=== PATIENT | female | born 1960 | race Hispanic/Latino ===

== ENCOUNTER → 2017-07-01 | Outpatient (CLI) | payer OTHER ==
[~2017-07-01] MED LIST: ZIAC 5-6.25 MG1 EACH PO
--- NOTE | 2017-07-01 15:49 | Diagnostic Imaging Report ---
PROCEDURE: Frontal and lateral views of the chest. COMPARISON: None. INDICATIONS: SHORTNESS OF BREATH FINDINGS: Lines/tubes: None. Lungs: The lungs are well inflated and grossly clear. There is no evidence of pneumonia or pulmonary edema. Pleura: There is no pleural effusion or pneumothorax. Heart and mediastinum: Cardiac silhouette is unremarkable. Pulmonary vasculature is normal. Bones: No acute bony abnormality. Rightward curvature of the lower thoracic spine. No lytic lesion. IMPRESSION: 1. No acute cardiopulmonary abnormalities. Tree Taylor M.D. Dictated by: Tree Taylor M.D. on 07/01/2017 at 15:51 Electronically approved by: Tree Taylor M.D. on 07/01/2017 at 15:51
== END ==
LOC: RAD 15:15
DX: R06.02 Shortness of breath (principal)
CPT/HCPCS: 71046

== ENCOUNTER → 2017-07-10 | Outpatient (CLI) | payer OTHER ==
[~2017-07-10] MED LIST changes: +IOPAMIDOL 370 MG/ML 200 ML INFUS..BTL INJ ONE; +SODIUM CHLORIDE 0.9% 50ML 50 ML ONE
[2017-07-10 09:58] LABS: BLOOD UREA NITROGEN 13 mg/dL (7-26); BUN/CREATININE RATIO 17 (6-25); CREATININE, SERUM 0.75 mg/dL (0.57-1.11); EST GLOMERULAR FILTRATION RATE > 60 ML/MIN (60-)
--- NOTE | 2017-07-10 11:13 | Diagnostic Imaging Report ---
PROCEDURE: CT scan of the chest WITH intravenous contrast, using PE protocol. TECHNIQUE: The chest was scanned utilizing a multidetector helical scanner from the lung apex through the level of the adrenal glands after the IV administration of 83 cc of Isovue 370. Coronal and sagittal multiplanar reformations were obtained. DLP: 492.15 mGy-cm COMPARISON: None. INDICATIONS: PULMONARY EMBOLISM,SHORT OF BREATH FINDINGS: Lines/tubes: None. Lungs and Airways: No pulmonary emboli. The lungs and airways are normal with no focal abnormality demonstrated. Pleura: The pleural spaces are clear. Heart and mediastinum: The thyroid gland is normal. No significant mediastinal, hilar or axillary lymphadenopathy is seen. The heart and pericardium are within normal limits. Minimal aortic calcification. Soft tissues: There are bilateral breast implants. Abdomen: Limited contrast-enhanced views of the upper abdomen show no abnormality within the visualized liver, spleen, pancreas or kidneys. The adrenal glands are normal. Bones: Mild thoracic spine scoliosis. IMPRESSION: 1. No evidence of pulmonary emboli or significant cardiopulmonary abnormality. Reynaldo Iqbal D.O. Dictated by: Reynaldo Iqbal D.O. on 07/10/2017 at 11:15 Electronically approved by: Reynaldo Iqbal D.O. on 07/10/2017 at 11:15
== END ==
LOC: CT 09:22
DX: I26.99 Other pulmonary embolism without acute cor pulmonale (principal); R79.81 Abnormal blood-gas level
CPT/HCPCS: 36415; 71260; 82565; 84520; Q9967